=== PATIENT | female | born 2000 | race Caucasian/White ===

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

== ENCOUNTER 2023-09-17 13:05 | Outpatient (CLI) | payer OTHER, SELFPAY ==
--- NOTE | 2023-09-17 13:13 | US_ITS ---
PROCEDURE: US OB BIOPHYSICAL PROFILE CLINICAL INDICATION: LGA size is greater than dates, ANASTASIA COMPARISON: No exams were available for comparison FINDINGS: Transabdominal sonographic images of the uterus were obtained. From her established due date she is 37 weeks 0 days. The following parameters are obtained: Viable Fetus in the cephalic presentation with a posterior/fundal placenta grade 3. Average ultrasound age is 35weeks 1day Estimated weight 2,606g, 5 lb 12 oz. Cervix measures 3.28 cm. Measurements: heart Rate = 134bpm BPD = 34weeks 5days, 8 percentile HC = 35weeks 3days, 4 percentile AC = 35weeks 3days, 20 percentile FL = 34weeks 6days, 6 percentile HC/AC is 1 FL/BPD is 0.79 FL/AC is 0.22 14 percentile Amniotic fluid index: 11.88cm, MVP 4.45 cm. Qualitative AFV:2 Breathing movements: 2 Gross Body Movements: 2 Tone: 2 Biophysical profile score: 8 No obvious anomalies evident.Kidneys, stomach, bladder, four-chamber heart, three-vessel cord appear normal. IMPRESSION: 1. Viable fetus in the cephalic presentation with a posterior/fundal placenta grade 3. 2. The fluid is within normal limits with an amniotic fluid index of 11.8 cm, MVP 4.45 cm. 3. Biophysical profile is 8/8 with good breathing movement and movement seen. 4. Fetus is symmetrically 2 weeks behind on its growth and is currently 14th percentile. Dictated by: Robson Lee MD 09/17/2023 16:46 Robson Lee MD in OV 09/17/2023 16:46
== END 2023-09-17 23:59 | disposition home or self-care (01) ==
LOC: RAD 13:06
PROVIDERS: Visit Provider Obstetrics & Gynecology
DX: O36.63X0 Maternal care for excessive fetal growth, third trimester, not applicable or unspecified (principal); O28.8 Other abnormal findings on antenatal screening of mother; Z3A.37 37 weeks gestation of pregnancy
CPT/HCPCS: 76816; 76819; 86403

== ENCOUNTER 2023-09-29 16:47 | Inpatient (IN) | payer OTHER, SELFPAY ==
[2023-09-29 16:53] VITALS: BMI 32.9
[2023-09-29 17:24] LABS: Microscopic, Urine URINE MICROSCOPIC (MICROSCOPIC)
[2023-09-29 17:33] LABS: Basophils % 0.2 % (0.1-2.0); Eosinophils # 0.1 K/mm3 (0.0-0.4); Eosinophils % 1.3 % (0.1-12.0); Hemoglobin 9.6 g/dL (12.2-16.2); Lymphocytes # 2.1 K/mm3 (0.7-4.5); Lymphocytes % 23.2 % (10-50); Mean Corpuscular HGB Conc 32.1 g/dL (31.8-35.4); Mean Corpuscular Hemoglobin 22.8 pg (27.0-31.2); Mean Corpuscular Volume 70.9 fl (81-99); Mean Platelet Volume 9.1 fl (7.4-10.4); Monocytes # 0.3 K/mm3 (0.1-1.0); Monocytes % 3.7 % (1.7-9.3); Neutrophils # 6.6 K/mm3 (1.8-7.8); Neutrophils % 71.7 % (37.0-80.0); Platelet Count 304 K/mm3 (142-424); Red Blood Count 4.24 M/mm3 (4.20-5.40); Red Cell Distribution Width 19.4 % (11.5-17.5); White Blood Count 9.2 K/mm3 (4.8-10.8)
[2023-09-29 17:39] VITALS: BMI 32.9
[2023-09-29 17:39] LABS: Appearance,Urine CLEAR (Clear); Bilirubin,Urine Negative (Negative); Blood, Urine Negative (Negative); Color,Urine YELLOW (Yellow); Glucose,Urine (UA) Negative (Negative); Ketones,Urine 2+ (Negative); Leukocyte Esterase,Urine Negative (Negative); Nitrate,Urine Negative (Negative); Protein,Urine 2+ (Negative)
[2023-09-29 17:55] LABS: Barbiturates Screen,Urine Negative ng/ml (<200); Benzodiazepines Screen,Urine Negative ng/ml (<200)
[2023-09-29 17:56] LABS: Amphetamine/Metha Screen,Urine Negative ng/ml (<1000)
[2023-09-29 17:57] LABS: Cannabinoid Screen,Urine Negative ng/ml (<50); Cocaine Screen,Urine Negative ng/ml (<300)
[2023-09-29 17:58] LABS: Methadone Screen,Urine Negative ng/ml (<300); Opiate Screen,Urine Negative ng/ml (<300)
[2023-09-29 17:59] LABS: Phencyclidine Screen,Urine Negative ng/ml (<25)
[2023-09-29] MEDS: miSOPROStol 100MCG TABLET 25 MCG VG ×2 (18:15→22:31)
[2023-09-29] MEDS: LACTATED RINGERS 1000ML 1,000 ML 250 ML IV (18:25)
[2023-09-29 19:21] LABS: Bacteria,Urine Trace /lpf; RBC,Urine Occasional #/hpf (0-3)
[2023-09-29 19:47] VITALS: BP 128/79; PULSE 71; RESP 17; TEMP 36.7; O2SAT 100
[2023-09-30] MEDS: BUTORPHANOL TARTRATE 1 MG/ML VIAL IV ×2 (01:05→09:18)
[2023-09-30] MEDS: miSOPROStol 100MCG TABLET 25 MCG VG (02:42)
[2023-09-30 04:49] VITALS: BP 124/67; PULSE 69; RESP 17; TEMP 36.5; O2SAT 100
[2023-09-30] MEDS: miSOPROStol 100MCG TABLET 50 MCG PO (06:45)
--- NOTE | 2023-09-30 08:17 | P.CONPHA_ITS ---
Pharmacy Intervention Comments: MEDICATION RECONCILIATION COMPLETED ON PATIENT USING EXTERNAL FILL HISTORY FROM PHARMACY AND LIST FROM ACCOUNT INSTALLATION SPECIALIST OFFICE. -PADMA MASOND
--- NOTE | 2023-09-30 08:17 | HMH.PHAINT1 ---
Pharmacy Intervention Comments: MEDICATION RECONCILIATION COMPLETED ON PATIENT USING EXTERNAL FILL HISTORY FROM PHARMACY AND LIST FROM SENIOR GRAPHIC DESIGNER OFFICE. -PADMA MASOND
--- NOTE | 2023-09-30 08:24 | HMH.PHAINT1 ---
Pharmacy Intervention Comments: HOME MEDICATION VERIFIED VIA OUTSIDE PHARMACY
--- NOTE | 2023-09-30 08:33 | P.HP_ITS ---
History of Present Illness *Admission Date: 09/30/23 *Reason for visit:: induction *History of present illness: Fanny is a 23yo presenting to L&D at 39w0d gestation for an scheduled elective induction of labor. ABRAHAM is 10/07/2023 based on last menstrual period consistent with 8-week ultrasound. has been relatively uncomplicated. She transferred care late in the third trimester. She received her Tdap vaccine along with this . On presentation patient endorsed good movement and denies any leakage of fluid or vaginal bleeding. A+, antibody negative, rubella immune, hepatitis B negative, hepatitis C negative, RPR negative, HIV negative 1 hour GTT: 94 GBS negative Q js: Low risk male fetus: John [facility] Disclaimer: The information contained in this section may have been updated after the patient was seen, as this information can be updated by other users. Medical History No significant past medical history Surgical History Hx of tonsillectomy Family History Unknown Cancer breast & ovarian Social History (Updated 09/30/23 @ 11:46 by Scotty Blood CRNA) Smoking Status: Never smoker alcohol intake: never substance use type: denies use current occupational status: employed Travel in the last 8 weeks: None Review of Systems Review of Systems Review of systems (narrative): Review of Systems Constitutional: Denies fever, chills, and sweats Eyes: Denies vision change/ pain Respiratory: Denies cough and shortness of breath Cardiovascular: Denies chest pain and lightheadedness Gastrointestinal: Denies abdominal pain. Denies nausea, vomiting. Genitourinary: Denies dysuria and incontinence Musculoskeletal: Denies shoulder pain and back pain Neurological: Denies change in speech or headaches Meds Home Medications and Allergies Home Medications Medication Instructions Recorded Confirmed Type famotidine 10 mg tablet 10 mg PO DAILY 08/26/23 09/29/23 History ferrous sulfate 325 mg (65 mg 325 mg PO BID 08/26/23 09/29/23 History iron) tablet ondansetron 4 mg disintegrating 4 mg PO Q6HP PRN Nausea 08/26/23 09/29/23 History tablet vits no.126-ferrous fum 1 tab PO DAILY 08/26/23 09/29/23 History 28 mg iron-folic acid 800 mcg tablet (Classic ) New Prescriptions to Start Prescriptions: Allergies Allergy/AdvReac Type Severity Reaction Status Date / Time No Known Allergies Allergy Verified 09/23/23 16:30 Exam Data for Last 24 hours Vital signs and Labs for Last 24 Hours: Temp Pulse Resp BP Pulse Ox O2 Del Method 97.7 F 69 17 124/67 100 Room Air 09/30/23 04:49 09/30/23 04:49 09/30/23 04:49 09/30/23 04:49 09/30/23 04:49 09/30/23 04:49 Laboratory Results - last 24 hr 09/29/23 17:00: Urine Color Yellow, Urine Appearance Clear, Urine pH 7.0, Ur Specific [place] 1.020, Urine Protein 2+, Urine Glucose (UA) Negative, Urine Ketones 2+, Urine Blood Negative, Urine Nitrate Negative, Urine Bilirubin Negative, Urine Urobilinogen 1.0, Ur Leukocyte Esterase Negative, Urine RBC Occasional, Urine WBC 3-5, Ur Squamous Epith Cells 5-10, Urine Bacteria Trace, Urine Opiates Screen Negative, Urine Methadone Screen Negative, Ur Barbituates Screen Negative, Ur Phencyclidine Scrn Negative, Ur Amphetamines Screen Negative, U Benzodiazepines Scrn Negative, Urine Cocaine Screen Negative, U Marijuana (THC) Screen Negative 09/29/23 17:12: WBC 9.2, RBC 4.24, Hgb 9.6 L, Hct 30.0 L, MCV 70.9 L, MCH 22.8 L , MCHC 32.1, RDW 19.4 H, Plt Count 304, MPV 9.1, Neut % (Auto) 71.7, Lymph % (Auto) 23.2, [place] % (Auto) 3.7, Eos % (Auto) 1.3, Baso % (Auto) 0.2, Neut # (Auto) 6.6, Lymph # (Auto) 2.1, [place] # (Auto) 0.3, Eos # (Auto) 0.1, Baso # (Auto) 0.0, Blood Type A Positive, Antibody Screen Negative I & O for Last 24 hours: Intake & Output 09/27/23 09/28/23 09/29/23 09/30/23 23:59 23:59 23:59 23:59 Weight 180 lb Narrative: General: patient is alert oriented in no acute distress and responds appropriately to questions. HEENT: NCAT, EOMI, moist mucous membranes, neck supple with full ROM Cardiovascular: RRR +S1/S2, no murmurs or rubs Pulmonary: Clear to auscultation bilaterally, nonlabored breathing, symmetric chest rise Abdominal: Gravid abdomen appropriate for gestation. No guarding, rebound, or tenderness noted. Extremities: trace edema, no tenderness or cyanosis noted Skin: Normal turgor, intact, warm. Negative for erythema, pallor, petechia, or lesions Neurologic: Negative for sensory or motor deficit Psychiatric: Normal affect, normal thought process, good judgment and insight, no depression or anxious mood appreciated. Constitutional Constitutional: no acute distress *Routine HEENT Exam Head: Present normocephalic and atraumatic Eye: Present EOMI, PERRL and normal accommodation; Absent conjunctival icterus, scleral injection, nystagmus or exophthalmos ENT: Present mucous membranes moist *Routine Neck Exam Neck: Present supple; Absent lymphadenopathy *Routine Respiratory Exam Respiratory: Present CTA bilaterally, normal respiratory effort, able to speak in complete sentences and symmetric chest movement; Absent accessory muscle use, decreased breath sounds, rales, respiratory distress, wheezes, distant breath sounds or diminished air movement *Routine Cardiovascular Exam Cardiovascular: Present RRR, Normal S1 and Normal S2; Absent murmur or gallop *Routine Abdominal Exam Abdominal: Present soft and normoactive bowel sounds; Absent tenderness, distended, rebound or guarding *Routine Rectal Exam Rectal:: deferred *Routine Genitalia Exam Genitalia:: normal female *Routine Extremities Exam Extremities: Absent cyanosis, clubbing or edema *Routine Skin Exam Skin: Present warm; Absent rash *Routine Neurological Exam Neurological: Present alert and oriented X3 Assessment and Plan *Assessment and plan (1) Anemia affecting first : Status: Acute Category: Medical Code(s): O99.019 - Anemia complicating , unspecified trimester (2) Elective induction of labor planned: Status: Acute Category: Medical (3) : Status: Acute Category: Medical Code(s): Z34.90 - Encounter for supervision of normal , unspecified, unspecified trimester Plan #39 weeks #Induction of labor -Admit to labor and delivery for planned elective induction of labor -Initiate induction with 25mcg of vaginal cytotec [id number] per protocol. At 5 AM this morning the patient had made no cervical change, was comfortable and not feeling contractions at that time, and decision was made to proceed with a dose of 50 mcg of p.o. Cytotec for her next dose for cervical ripening -External FHR and TOCO monitor -Exam on admission: /-3 -GBS negative/ Blood type: A+ #Anemia -Hemoglobin: 9.6 -Microcytic anemia with an MCV of 70. Likely iron deficiency anemia and chronic -Plt: 304 -Plan for epidural -Anticipate vaginal delivery of Male infant: John
[2023-09-30] MEDS: DEXTROSE 5%-LACTATED RINGERS 1,000 ML 125 ML IV ×2 (09:16→17:24)
[2023-09-30] MEDS: LACTATED RINGERS 1000ML 1,000 ML 500 ML IV ×2 (10:50→15:47)
--- NOTE | 2023-09-30 11:45 | P.PNANES_ITS ---
[facility] Disclaimer: The information contained in this section may have been updated after the patient was seen, as this information can be updated by other users. Medical History No significant past medical history Surgical History Hx of tonsillectomy Family History Unknown Cancer breast & ovarian Social History (Updated 09/29/23 @ 18:32 by Laurel Mckeon RN) Smoking Status: Never smoker alcohol intake: never substance use type: denies use current occupational status: employed Travel in the last 8 weeks: None [facility] Anesthesia Checklist Patient Identification Patient Identification: Arm Band Structural Data Admitted From: Inpatient Planned Operative Procedure/s: Labor Epidural Consent for Planned Operative Procedure(s) Verified: Yes Verified Documents: History and Physical Additional verifications Anesthesia Reactions: No Airway Assessment Dentition: Good Dentition Neurological Assessment Level of Consciousness: Awake and Alert Anesthesia Plan Anesthesia Risk discussed: Yes Anesthesia Plan: Verified ASA Class: II Anesthesia Type: Epidural
[2023-09-30] MEDS: OXYTOCIN/RINGERS LACTATE 30 UNITS/500 ML BAG IV (11:58)
[2023-09-30] MEDS: ONDANSETRON 4MG/2ML VIAL 4 MG IV (15:34)
[2023-09-30] MEDS: OXYTOCIN/RINGERS LACTATE 30 UNITS/500 ML BAG 40 UNITS IV ×2 (21:29→23:44)
[2023-09-30] MEDS: ACETAMINOPHEN 500MG TAB 1000 MG PO (22:40)
--- NOTE | 2023-09-30 23:38 | EXP.DN ---
Delivery Note Delivery Date:: 09/30/23 Delivery Time:: 21:24 Anesthesia Type: Epidural Was labor medically induced?: Yes Induction method: per misoprostol protocol Gestational age (weeks): 39 Infant delivered prior to 39 weeks?: No Gender: Male at 1 minute: 8 at 5 minutes: 9 LAC or MLE?: LAC Delivery Procedure:: Preoperative diagnosis: 1. at 39 completed this weeks gestation, vertex 2. Rh positive 3. GBS negative 4. Elective induction of labor Postoperative diagnosis: 1. at 39 completed this weeks gestation, vertex 2. Rh positive 3. GBS negative 4. Elective induction of labor EBL: 200mL Specimen: 1. Cord blood Findings: 1. Liveborn viable male : John. Apgars 8/9 at 1 and 5 minutes respectively. Weight: 6 pounds 5 ounces 2. Periurethral/periclitoral laceration Complications: None Procedure: Normal spontaneous vaginal delivery Fanny Kendall is a very pleasant 23-year-old G1, P0 who presented to labor and delivery for a scheduled elective induction of labor. She was a third trimester transfer of care. Her was uncomplicated. Induction was initiated with Cytotec for cervical ripening. She received 4 doses of Cytotec and tolerated that well. She had spontaneous rupture of membranes this morning revealing clear fluid. Pitocin was started, per protocol to augment her labor. She progressed to complete and with effective maternal pushing there was a nonoperative spontaneous vaginal delivery at 2123. There was a nuchal cord x1 that was reduced without difficulty. The anterior shoulder delivered, followed by the posterior shoulder without dystocia. The body and lower extremities delivered without difficulty. The infant was bulb suctioned and was crying immediately following delivery. The infant was placed on the maternal abdomen and greater than one minute was appreciated for delayed cord clamping. The umbilical cord was doubly clamped and cut. Cord blood was collected and sent for routine testing. The placenta delivered with cord traction and suprapubic contertraction. Pitocin was started and the placenta and cord were inspected. The placenta was noted to be intact, with a 3 vessel cord. The uterus was firm and bleeding was minimal. The perineum, vaginal moore, cervix, and paraurethral area were inspected thoroughly. There is a small periclitoral laceration that was reapproximated with 3 single interrupted 3-0 Vicryl stitches. The laceration was hemostatic. This concluded the delivery. The patient was counseled regarding the events of the delivery and repair. The patient tolerated the delivery well. All counts were correct by nursing. Mother and infant were doing and bonding well upon my leaving the delivery room. Placental Delivery Description: Expressed
[2023-10-01] MEDS: IBUPROFEN 400 MG TABLET 800 MG PO ×3 (04:18→16:24)
[2023-10-01 07:01] LABS: Basophils % 0.1 % (0.1-2.0); Eosinophils % 0.2 % (0.1-12.0); Hematocrit 25.5 % (37.0-47.0); Hemoglobin 8.1 g/dL (12.2-16.2); Lymphocytes # 2.4 K/mm3 (0.7-4.5); Lymphocytes % 16.9 % (10-50); Mean Corpuscular HGB Conc 31.8 g/dL (31.8-35.4); Mean Corpuscular Hemoglobin 22.8 pg (27.0-31.2); Mean Corpuscular Volume 71.6 fl (81-99); Mean Platelet Volume 9.7 fl (7.4-10.4); Monocytes # 0.9 K/mm3 (0.1-1.0); Monocytes % 6.2 % (1.7-9.3); Neutrophils # 10.7 K/mm3 (1.8-7.8); Neutrophils % 76.6 % (37.0-80.0); Platelet Count 246 K/mm3 (142-424); Red Blood Count 3.57 M/mm3 (4.20-5.40)
[2023-10-01 09:00] VITALS: BP 122/77; PULSE 72; RESP 18; TEMP 36.9; O2SAT 99
[2023-10-01] MEDS: FAMOTIDINE 20MG TABLET 10 MG PO (09:03)
[2023-10-01] MEDS: LANOLIN CREAM 40GM TP (09:03)
[2023-10-01] MEDS: ACETAMINOPHEN 500MG TAB 1000 MG PO ×2 (09:03→17:39)
[2023-10-01] MEDS: FERROUS SULFATE 325MG TABLET 325 MG PO ×2 (09:03→20:18)
--- NOTE | 2023-10-01 09:28 | EXP.PN ---
Subjective *Date: 10/01/23 *Time: 09:28 Interval history: Fanny Hardy is a 23-year-old G1, P1 day #1 following a normal spontaneous vaginal delivery at 39 weeks and 0 days gestation. was uncomplicated. Routine delivery and course thus far. -Reports pain is well-controlled -Breast-feeding her male infant. Desires circumcision -Reports she is tolerating p.o. without nausea or vomiting. -Reports her lochia is scant. -Denies any perineal pain -Ambulating, voiding difficulty or dysuria. Denies chest pain shortness of breath or pain in her legs. No further complaints at this time. Exam Data for Last 24 hours Vital signs and Labs for Last 24 Hours: Temp Pulse Resp BP Pulse Ox O2 Del Method 97.7 F 69 17 124/67 100 Room Air 09/30/23 04:49 09/30/23 04:49 09/30/23 04:49 09/30/23 04:49 09/30/23 04:49 09/30/23 04:49 Laboratory Results - last 24 hr 10/01/23 06:29: WBC 14.0 H D, RBC 3.57 L, Hgb 8.1 L, Hct 25.5 L, MCV 71.6 L, MCH 22.8 L, MCHC 31.8, RDW 20.0 H, Plt Count 246, MPV 9.7, Neut % (Auto) 76.6, Lymph % (Auto) 16.9, [place] % (Auto) 6.2, Eos % (Auto) 0.2, Baso % (Auto) 0.1, Neut # (Auto) 10.7 H, Lymph # (Auto) 2.4, [place] # (Auto) 0.9, Eos # (Auto) 0.0, Baso # (Auto) 0.0 I & O for Last 24 hours: Intake & Output 09/28/23 09/29/23 09/30/23 10/01/23 23:59 23:59 23:59 23:59 Weight 180 lb Narrative: General: patient is alert oriented in no acute distress and responds appropriately to questions. Appears to be in minimal pain. Sitting up in the bed and doing well HEENT: NCAT, EOMI, moist mucous membranes, neck supple with full ROM Cardiovascular: RRR +S1/S2, no murmurs or rubs Pulmonary: Clear to auscultation bilaterally, nonlabored breathing, symmetric chest rise Abdominal: Fundus below the umbilicus, firm, and tenderness appropriate for the period. Extremities: trace edema, no tenderness or cyanosis noted Skin: Normal turgor, intact, warm. Negative for erythema, pallor, petechia, or lesions Neurologic: Negative for sensory or motor deficit Psychiatric: Normal affect, normal thought process, good judgment and insight, no depression or anxious mood appreciated. Assessment and Plan *Assessment and plan (1) Anemia affecting first : Status: Acute Category: Medical Code(s): O99.019 - Anemia complicating , unspecified trimester (2) (normal spontaneous vaginal delivery): Status: Acute Category: Medical Code(s): O80 - Encounter for full-term uncomplicated delivery Plan Stable. PPD#1 s/p . -Doing well. VSS. Serial lochia and fundal checks. -Continue with perineal ice packs for discomfort -, male -Desires circumcision, consents signed and risks reviewed this morning. I will complete in the AM -Contraception: undecided -Follow-up 2 weeks for routine visit -Dispo: home in 1-3 days pending mother/infant status #Anemia -Microcytic anemia likely chronic iron deficiency anemia complicated by physiologic anemia of and blood loss at delivery -Hemoglobin: 9.6--> 8.1 - asymptomatic anemia noted. Vitals stable. -IV iron ordered to be given this morning -DC with p.o. iron -A+/antibody negative
[2023-10-01] MEDS: IRON SUCROSE COMPLEX 200 MG in 0.9 % SODIUM CHLORIDE 100 ML 220 MG IV (10:29)
[2023-10-01 12:14] VITALS: BP 123/80; PULSE 65; RESP 18; TEMP 36.7; O2SAT 98
[2023-10-01 16:10] VITALS: BP 131/80; PULSE 68; RESP 18; TEMP 36.9; O2SAT 98
[2023-10-01] MEDS: PRENATAL MULTIVITAMIN W/IRON 1 EACH PO (16:24)
[2023-10-01 20:17] VITALS: BP 132/87; PULSE 67; RESP 17; TEMP 36.5; O2SAT 99
[2023-10-02 07:45] VITALS: BP 148/85; PULSE 82; RESP 18; TEMP 36.8; O2SAT 98
[2023-10-02] MEDS: IBUPROFEN 400 MG TABLET 800 MG PO (07:59)
[2023-10-02] MEDS: FERROUS SULFATE 325MG TABLET 325 MG PO (07:59)
[2023-10-02] MEDS: FAMOTIDINE 20MG TABLET 10 MG PO (08:00)
--- NOTE | 2023-10-02 09:14 | EXP.DC.SUM ---
General Admission date:: 09/29/23 Discharge date: 10/02/23 HPI HPI HPI: Fanny is a 23yo presenting to L&D at 39w0d gestation for an scheduled elective induction of labor. ABRAHAM is 10/07/2023 based on last menstrual period consistent with 8-week ultrasound. has been relatively uncomplicated. She transferred care late in the third trimester. She received her Tdap vaccine along with this . On presentation patient endorsed good movement and denies any leakage of fluid or vaginal bleeding. A+, antibody negative, rubella immune, hepatitis B negative, hepatitis C negative, RPR negative, HIV negative 1 hour GTT: 94 GBS negative Q : Low risk male fetus: [facility] Course Hospital Course Hospital Course: Fanny Hardy is a 23-year-old G1, P1 day #2 following a normal spontaneous vaginal delivery at 39 weeks and 0 days gestation. was uncomplicated. Routine delivery and course. -Reports pain is well-controlled -Breast-feeding her male . Circumcision completed this morning without problems -Reports she is tolerating p.o. without nausea or vomiting. -Reports her lochia is scant. -Denies any perineal pain -Ambulating, voiding difficulty or dysuria. Denies chest pain shortness of breath or pain in her legs. No further complaints at this time. Patient and partner are ready for discharge. Routine discharge instructions were reviewed with both of them in detail and they voiced understanding. All questions and concerns were addressed to their satisfaction Exam Data for Last 24 hours Vital signs and Labs for Last 24 Hours: Temp Pulse Resp BP Pulse Ox O2 Del Method 97.7 F 67 17 132/87 99 Room Air 10/01/23 20:17 10/01/23 20:17 10/01/23 20:17 10/01/23 20:17 10/01/23 20:17 10/01/23 20:17 I & O for Last 24 hours: Intake & Output 09/29/23 09/30/23 10/01/23 10/02/23 23:59 23:59 23:59 23:59 Weight 180 lb Narrative: General: patient is alert oriented in no acute distress and responds appropriately to questions. Appears to be in minimal pain. Sitting up in the bed and doing well HEENT: NCAT, EOMI, moist mucous membranes, neck supple with full ROM Cardiovascular: RRR +S1/S2, no murmurs or rubs Pulmonary: Clear to auscultation bilaterally, nonlabored breathing, symmetric chest rise Abdominal: Fundus below the umbilicus, firm, and tenderness appropriate for the period. Extremities: trace edema, no tenderness or cyanosis noted Skin: Normal turgor, intact, warm. Negative for erythema, pallor, petechia, or lesions Neurologic: Negative for sensory or motor deficit Psychiatric: Normal affect, normal thought process, good judgment and insight, no depression or anxious mood appreciated. DS: Diagnosis Discharge Diagnosis (1) Anemia affecting first : Status: Acute Code(s): O99.019 - Anemia complicating , unspecified trimester (2) (normal spontaneous vaginal delivery): Status: Acute Code(s): O80 - Encounter for full-term uncomplicated delivery Problem details: Stable. PPD#2 s/p . -Doing well. VSS. Serial lochia and fundal checks. -Continue with perineal ice packs for discomfort -, male -Desires circumcision, completed this morning without complications -Contraception: undecided -Follow-up 2 weeks for routine visit -Dispo: home in 1-3 days pending mother/infant status #Anemia -Microcytic anemia likely chronic iron deficiency anemia complicated by physiologic anemia of and blood loss at delivery -Hemoglobin: 9.6--> 8.1 - asymptomatic anemia noted. Vitals stable. -IV iron received on day #1 -DC with p.o. iron -A+/antibody negative Meds Home Medications and Allergies Home Medications Medication Instructions Recorded Confirmed Type famotidine 10 mg tablet 10 mg PO DAILY 08/26/23 09/29/23 History ondansetron 4 mg disintegrating 4 mg PO Q6HP PRN Nausea 08/26/23 09/29/23 History tablet vits no.126-ferrous fum 1 tab PO DAILY 08/26/23 09/29/23 History 28 mg iron-folic acid 800 mcg tablet (Classic ) acetaminophen 500 mg tablet 500 mg PO Q6H PRN fever #30 tabs 10/02/23 Rx ferrous sulfate 325 mg (65 mg 325 mg PO DAILY #30 tabs 10/02/23 Rx iron) tablet ibuprofen 800 mg tablet 800 mg PO Q8H PRN pain #60 tabs 10/02/23 Rx sennosides 8.6 mg tablet (Senna 8.6 mg PO BIDP PRN Constipation 10/02/23 Rx Lax) #60 tabs New Prescriptions to Start Prescriptions: acetaminophen Nydia Kimble ferrous sulfate Nydia Kimble ibuprofen Nydia Kimble sennosides [Senna Lax] Nydia Kimble Allergies Allergy/AdvReac Type Severity Reaction Status Date / Time No Known Allergies Allergy Verified 09/23/23 16:30 Discharge Plan Disposition Patient Disposition: Home, Self-Care Discharge Order Discharge Orders: Discharge Order (Routine); Ordered 10/02/23 Ordered By: Nydia Kimble Follow up Plan Follow up with: Nydia Kimble DO [Staff Physician] - 10/14/23 9:45 am Prescriptions/Medication Reconciliation: New sennosides [Senna Lax] 8.6 mg Tablet 8.6 mg PO BIDP PRN (Reason: Constipation) Qty: 60 2RF ibuprofen 800 mg tablet 800 mg PO Q8H PRN (Reason: pain) Qty: 60 2RF acetaminophen 500 mg tablet 500 mg PO Q6H PRN (Reason: fever) Qty: 30 3RF Continued ondansetron 4 mg tablet,disintegrating 4 mg PO Q6HP PRN (Reason: Nausea) Patient Comments: DISSOLVE 1 TABLET IN MOUTH TWICE DAILY NEEDED Classic 28 mg iron- 800 mcg tablet 1 tab PO DAILY famotidine 10 mg tablet 10 mg PO DAILY Changed ferrous sulfate 325 mg (65 mg iron) tablet 325 mg PO DAILY Qty: 30 2RF Patient Comments: TAKE 1 TABLET BY MOUTH TWICE DAILY Problem Reconciliation Problems Reviewed?: Yes Patient Discharge Instructions ACTIVITY: Continue current activity DIET: regular diet Additional Instructions: Congratulations on the delivery of your sweet baby boy. It is my privilege to be your doctor and I am so thankful I could be a part of your special day. Discharge: -Take 800 mg Ibuprofen every 8 hours as needed for pain. You can also take 500-1000 mg of Tylenol in between doses, every 6-8 hours. -Colace can be taken 1-2 times per day as you need to soften your stool. Make sure to drink at least 8 cups of water per day. -Iron supplements can make you constipated. You can take iron tablets every other day if constipation is too bad. -Nothing in the vagina for 6 weeks - no sex, douching, tampons. No tub baths -Do not lift greater than 15 pounds for 6 weeks, this is the equivalent of 2 gallons of milk. -Reasons to return to L&D or call On-Call doctor - fever (greater than 100.4) - heavy vaginal bleeding (soaking through 1 pad in less than 2 hours or passing clots that are egg sized) - vaginal discharge (malodorous and/or purulent) - severe headaches, leg tenderness/edema, or any other symptoms that warrant immediate medical attention. depression/blues - Normal to feel anxious/overwhelmed for first 2 weeks - Talk to your doctor if: anxiety lasts over 2 weeks, trouble bonding with baby, withdrawing from other family members, thoughts of harming yourself or others Nydia Kimble DO [facility] [phone] *Nothing in the Vagina for 6 weeks* *No strenuous activity* *No heavy lifting* *No tub baths until okay's by MD* Patient Instructions: Depression, Hemorrhage, DI for Labor and Delivery, Vaginal , DI for Pre-eclampsia, [facility] Post Discharge Instructions Providers Primary Care Provider: Juan Sethi Admit Provider: Nydia Kimble Attending Provider: Nydia Kimble
== END 2023-10-02 12:40 | disposition home or self-care (01) | DRG 807 ==
PROVIDERS: Admitting Provider Obstetrics & Gynecology; PCP Internal Medicine Addiction Medicine; Visit Provider Obstetrics & Gynecology
DX: O99.02 Anemia complicating childbirth (principal); Z37.0 Single live birth; Z3A.39 39 weeks gestation of pregnancy; O70.0 First degree perineal laceration during delivery; D50.0 Iron deficiency anemia secondary to blood loss (chronic)
CPT/HCPCS: 59409; 36415; 59025; 80307; 81001; 85025; 86850; 94761; G0283; J0595; J1756; J2405

== ENCOUNTER 2024-04-14 11:12 | Outpatient (CLI) | payer OTHER, SELFPAY ==
[2024-04-14 13:02] LABS: HCG,Quantitative 66004 mIU/ml (0-5.42)
== END 2024-04-14 23:59 | disposition home or self-care (01) ==
LOC: LAB 11:12
PROVIDERS: PCP Internal Medicine Addiction Medicine; Visit Provider Obstetrics & Gynecology
DX: Z34.90 Encounter for supervision of normal pregnancy, unspecified, unspecified trimester (principal)
CPT/HCPCS: 36415; 84144; 84702

== ENCOUNTER 2024-04-28 14:56 | Outpatient (CLI) | payer OTHER, SELFPAY ==
[2024-04-28 15:58] LABS: Basophils % 0.5 % (0.1-2.0); Eosinophils % 0.1 % (0.1-12.0); Hematocrit 39.8 % (37.0-47.0); Hemoglobin 13.7 g/dL (12.2-16.2); Lymphocytes # 1.8 K/mm3 (0.7-4.5); Lymphocytes % 24.9 % (10-50); Mean Corpuscular HGB Conc 34.4 g/dL (31.8-35.4); Mean Corpuscular Hemoglobin 28.3 pg (27.0-31.2); Mean Corpuscular Volume 82.4 fl (81-99); Mean Platelet Volume 8.2 fl (7.4-10.4); Monocytes # 0.4 K/mm3 (0.1-1.0); Monocytes % 5.6 % (1.7-9.3); Neutrophils % 68.9 % (37.0-80.0); Platelet Count 275 K/mm3 (142-424); Red Blood Count 4.83 M/mm3 (4.20-5.40); White Blood Count 7.3 K/mm3 (4.8-10.8)
[2024-04-28 22:46] LABS: HIV (1&2) Antibody Rapid NONREACTIVE (NONREACTIVE)
[2024-04-29 06:26] LABS: HCV Ab Non Reactive (Non Reactive); Hepatitis B Surface Antigen Negative (Negative); Rubella Antibodies, IgG 1.99 index (Immune >0.99)
[2024-04-29 12:29] LABS: Rapid Plasma Reagin Ab Titer Non Reactive titer (NonRea<1:1)
[2024-04-30 07:14] LABS: Neisseria gonorrhoeae, NAA Negative (Negative)
== END 2024-04-28 23:59 | disposition home or self-care (01) ==
LOC: LAB 14:58
PROVIDERS: PCP Internal Medicine Addiction Medicine; Visit Provider Obstetrics & Gynecology
DX: Z34.90 Encounter for supervision of normal pregnancy, unspecified, unspecified trimester (principal)
CPT/HCPCS: 36415; 85025; 86593; 86762; 86803; 86850; 87086; 87340; 87389; 87491; 87591

== ENCOUNTER 2024-07-22 13:08 | Outpatient (CLI) | payer OTHER, SELFPAY ==
--- NOTE | 2024-07-22 13:08 | US_ITS ---
PROCEDURE: US OB /MATERNAL DETAIL CLINICAL INDICATION: 20 wk+ anatomy scan COMPARISON: No exams were available for comparison FINDINGS: Transabdominal sonographic images of the pelvis were obtained. From her established due date she is 21 weeks 0 days. Single viable intrauterine gestation. Cephalic position. Placenta: Anteriorplacenta grade 1. There is an average amount of fluid. The cervix appears satisfactory. Closed and measuring 4.78 in length. Complete survey performed and was unremarkable on the submitted images as in PACS. No discrete anomalies identified on survey imaging by technologist. Active fetus. Three-vessel cord with satisfactory umbilical cord insertion. 4- chamber heart noted. Situs, aortic arch, LVOT, RVOT, three-vessel view appear normal. There is a small intracardiac echogenic foci in the right ventricle. Survey of brain & ventricles Unremarkable. Cerebellum, thalamus, choroid plexus, cisterna magna appear normal. Face and neck survey unremarkable. Profile, nasion, lips and nose appeared normal. Diaphragm and chest views unremarkable. Abdomen: Both kidneys noted and unremarkable. Stomach and bladder noted and satisfactory. Spine: Survey of the spine satisfactory with no anomalies identified nor imaged. Cervical, thoracic, lower spine appear normal. Both arms and legs noted. Amniotic Fluid: Adequate. MVP 2.70 cm Measurements: Average ultrasound age 21weeks 0 days. Estimated due date by ultrasound age 0612/02/2024. Estimated weight 412g BPD = 20weeks 3days HC = 20weeks 4days AC = 21weeks 3days FL = 21weeks 4days Growth Percentile= 60 Heart Rate = 150bpm Cerebellum = 20weeks 0 days Humerus = 21weeks 1day HC/AC is 1.12 FL/BPD is 0.77 FL/AC is 0.22 IMPRESSION: 1. Viable fetus in the cephalic presentation with an anterior placenta grade 1. 2. The fluid is within normal limits with an MVP 2.70 cm. 3. Anatomical scan appears normal. 4. There is a small intracardiac echogenic foci in the right ventricle and would suggest follow-up at 28 weeks. 5. biometry is consistent with the dates. Dictated by: Robson Lee MD 07/22/2024 16:10 Robson Lee MD in OV 07/22/2024 16:10
== END 2024-07-22 23:59 | disposition home or self-care (01) ==
PROVIDERS: PCP Internal Medicine Addiction Medicine; Visit Provider Obstetrics & Gynecology
DX: Z36.3 Encounter for antenatal screening for malformations (principal); O09.892 Supervision of other high risk pregnancies, second trimester; O16.2 Unspecified maternal hypertension, second trimester; Z3A.21 21 weeks gestation of pregnancy; O99.019 Anemia complicating pregnancy, unspecified trimester
CPT/HCPCS: 76811

== ENCOUNTER 2024-10-15 10:45 | Outpatient (CLI) | payer BC, OTHER, SELFPAY ==
[2024-10-15 12:26] LABS: Basophils % 0.2 % (0.1-2.0); Eosinophils # 0.2 Kmm3 (0.0-0.4); Eosinophils % 1.7 % (0.1-12.0); Hematocrit 30.6 % (37.0-47.0); Hemoglobin 9.2 g/dL (12.2-16.2); Immature Granulocytes # 0.09 10^3uL; Lymphocytes # 1.8 K/mm3 (0.7-4.5); Lymphocytes % 20.2 % (10-50); Mean Corpuscular HGB Conc 30.1 g/dL (31.8-35.4); Mean Corpuscular Hemoglobin 23.1 pg (27.0-31.2); Mean Corpuscular Volume 76.9 fl (81-99); Mean Platelet Volume 10.4 fl (7.4-10.4); Monocytes # 0.5 K/mm3 (0.1-1.0); Monocytes % 5.7 % (1.7-9.3); Neutrophils # 6.4 K/mm3 (1.8-7.8); Neutrophils % 71.2 % (37.0-80.0); Nucleated Red Blood Cells # 0 10^3/uL; Nucleated Red Blood Cells % 0 %; Platelet Count 222 K/mm3 (142-424); Red Blood Count 3.98 M/mm3 (4.20-5.40); Red Cell Distribution Width 15.7 % (11.5-17.5); Red Cell Distribution Width-SD 43.5 fL
[2024-10-15 12:38] LABS: Glucose 1 Hour 110 mg/dL (74-100)
--- NOTE | 2024-10-15 14:15 | US_ITS ---
PROCEDURE: US OB FOLLOW UP CLINICAL INDICATION: sm intracardiac-echogenic foci in the RT ventricle COMPARISON: US US OB /MATERNAL DETAIL from 07/22/2024 FINDINGS: Transabdominal sonographic images of the pelvis were obtained. The following parameters are obtained: From her established due date she is 33weeks 1day Viable fetus in the cephalic presentation with an anterior placenta grade 1. The cervix measures 3.7 cm heart rate: 156bpm bpm. Average ultrasound age 33 weeks 1 day Estimated weight 2084 grams, 4 lb 10 oz BPD: 33weeks 0 days, 38 percentile HC: 33weeks 2days, 17 percentile AC: 33weeks 2days, 52 percentile FL: 32weeks 4days, 21 percentile HC/AC: 1.03 FL/BPD: 0.76 FL/AC: 0.22 Growth percentile: 35 Amniotic fluid: MVP 4.72 cm No obvious anomalies evident. profile seen, stomach, bladder, kidneys, three-vessel cord, four chamber heart, three-vessel view, RVOT, LVOT appear normal. IMPRESSION: 1. Viable fetus in the cephalic presentation with an anterior placenta grade 1. 2. The fluid is within normal limits with an MVP 4.72 cm. 3. There has been good interval growth with the fetus currently 35th percentile. 4. Limited anatomical scan appears normal. 5. The previously described intracardiac echogenic foci is no longer apparent today. Dictated by: Robson Lee MD 10/16/2024 07:42 Robson Lee MD in OV 10/16/2024 07:42
[2024-10-15 15:14] LABS: RPR W/RFX Titers Nonreactive (Nonreactive)
[2024-10-15 15:44] LABS: Ferritin 3.67 ng/ml (6.24-137)
== END 2024-10-15 23:59 | disposition home or self-care (01) ==
LOC: RAD 10:45
PROVIDERS: Visit Provider Obstetrics & Gynecology
DX: Z36.2 Encounter for other antenatal screening follow-up (principal); O28.3 Abnormal ultrasonic finding on antenatal screening of mother; Z3A.32 32 weeks gestation of pregnancy
CPT/HCPCS: 36415; 76816; 82728; 82947; 85025; 86592

== ENCOUNTER 2024-10-29 11:30 | Outpatient (CLI) | payer BC, OTHER, SELFPAY | END 2024-10-29 23:59 | disposition home or self-care (01) | LOC: LAB.DROPOF 11-02 13:54 | PROVIDERS: PCP Obstetrics & Gynecology; Visit Provider Obstetrics & Gynecology | DX: O99.013 Anemia complicating pregnancy, third trimester (principal); D50.9 Iron deficiency anemia, unspecified; O09.893 Supervision of other high risk pregnancies, third trimester; Z3A.35 35 weeks gestation of pregnancy | CPT/HCPCS: 86403 ==

== ENCOUNTER 2024-10-29 12:06 | Emergency (ER) | payer BC, OTHER, SELFPAY ==
[2024-10-29 12:30] VITALS: BP 133/80; PULSE 99; RESP 18; TEMP 36.6; O2SAT 100; BMI 33.8
--- NOTE | 2024-10-29 12:33 | [facility].EDGENADL ---
Discharge Plan Disposition Patient Disposition: Home, Self-Care Condition: Good Prescriptions Prescriptions: No Action Classic 28 mg iron- 800 mcg tablet 1 tab PO DAILY Qty: 30 3RF promethazine 12.5 mg tablet 12.5 mg PO Q6H PRN (Reason: nausea and vomiting) Qty: 30 2RF ferrous sulfate 325 mg (65 mg iron) tablet 325 mg PO DAILY Qty: 30 11RF Referrals Follow up/Referrals: Juan Sethi MD [Primary Care Provider] - See instructions Activity Restrictions/Add. Instructions Additional Instructions/Restrictions: I recommend wearing compression stockings to keep the fluid out of your lower extremity. I recommend not sitting for a long periods of time. Please follow-up with your PCP if you have persistent new or worsening signs or symptoms or return to the ER as needed. Clinical Impressions Clinical Impression: Lymphedema of left leg Print Language Print Language: Belarusian Discharge ED Provider: Francisco Watkins [facility] Adult HPI <OSCAR Wallace - Last Filed: 10/29/24 21:26> General Chief complaint: Extremity Problem,Nontraumatic Stated complaint: Sent by OB Leg swollen Time Seen by Provider: 10/29/24 12:33 Mode of Arrival: Ambulatory Source of Information: Patient Description of Symptoms (Recalled from ER Triage Doc. by RN): Pt was advised by her OB to come and be evaluated for left foot/leg swelling and redness that started 3 days ago [place] the beach History of Present Illness HPI narrative: Patient presents for evaluation of left lower extremity pain and swelling. Patient is 35 weeks . Patient recently took a vacation to [place] in which she traveled by car. Patient noticed while on vacation that her left lower extremity was red and swollen. She presented to her [facility] today for evaluation and was sent to the emergency department for further evaluation. Patient states that she has no chest pain shortness of breath fever chills hemoptysis hematochezia melena nausea vomiting diarrhea. The leg was more swollen and red while she was in [place] than since her return. Related Data Previous Rx's ?Medication ?Instructions ?Recorded vits no.126-ferrous fum 1 tab PO DAILY #30 tabs 04/28/24 28 mg iron-folic acid 800 mcg tablet (Classic ) promethazine 12.5 mg tablet 12.5 mg PO Q6H PRN nausea and 04/28/24 vomiting #30 tabs ferrous sulfate 325 mg (65 mg 325 mg PO DAILY #30 tabs 10/15/24 iron) tablet Allergies Allergy/AdvReac Type Severity Reaction Status Date / Time No Known Allergies Allergy Verified 10/29/24 11:32 PFSH <OSCAR Wallace - Last Filed: 10/29/24 21:26> PFS Disclaimer: The information contained in this section may have been updated after the patient was seen, as this information can be updated by other users. Medical History (Updated 10/29/24 @ 13:41 by OSCAR Wallace) Iron deficiency anemia during , antepartum Elevated blood pressure affecting in first trimester, antepartum Short interval between pregnancies affecting , antepartum Surgical History Hx of tonsillectomy Family History Unknown Cancer breast & ovarian Social History Smoking Status: Never smoker alcohol intake: never substance use type: denies use current occupational status: employed Travel in the last 8 weeks?: None Have you lived/traveled outside US in past 30 days?: No Contact w/someone who lives/traveled outside US past 30 days?: No Exposure to someone with infectious disease in past 14 days?: No Do you have a fever (greater than 100.4 F or 38 C)?: No Have you tested positive for COVID-19?: No Exposed to someone with COVID-19 in past 14 days?: No Do you have a sore throat?: No Do you have a cough?: No Do you have any weakness?: No Do you have any diarrhea?: No Are you experiencing any unusual bleeding?: No Do you have any muscle aches/pain?: No Do you have any abdominal pain?: No Are you experiencing loss of taste or smell?: No Other Medical History Have you received the Flu Vaccine for this season: No Have you received the Pneumonia Vaccine: No <OSCAR Wallace - Last Filed: 10/29/24 21:26> ROS Obtained: Yes Systems reviewed as appropriate & no additional complaints except as documented Physical Exam <OSCAR Wallace - Last Filed: 10/29/24 21:26> General General appearance: alert and in no apparent distress Respiratory Respiratory exam: Present normal lung sounds bilaterally Cardiovascular Cardiovascular exam: Present regular rate Neurological Exam Neurological exam: Present alert and oriented X3 Medical Decision Making <OSCAR Wallace - Last Filed: 10/29/24 21:26> Medical Records Medical records reviewed: Yes I reviewed the patient's medical records. Screening: Per USPSTF and CDC recommendations, given the prevalence of disease in our region, it is our hospital?s policy to screen for HIV and viral Hepatitis for all patients aged 18 and over and those with ongoing risk factors. Elliot Inquiry Pt receiving controlled substance: No Vital Signs: 10/29/24 12:30 10/29/24 13:49 Temperature 97.8 F 98 F Temperature Source Oral Pulse Rate 89 Pulse Rate [Right] 99 H Respiratory Rate 18 14 Blood Pressure 114/71 Blood Pressure [Right Arm] 133/80 Blood Pressure Mean [Right Arm] 97 Blood Pressure Source [Right Arm] Automatic Cuff Blood Pressure Position [Right Arm] Sitting 02 Sat by Pulse Oximetry 100 Lab Data Lab results reviewed: Yes I reviewed the patient's lab results. Orders (Tests/Meds): ORDERS Category Date Time Status CA venous doppler LE LT Stat Y 10/29/24 13:02 Completed Medical Decision Narrative: In summary patient is a 24-year-old female who presents to the emergency department for evaluation of left lower extremity pain and swelling. Patient is hemodynamically stable upon arrival, afebrile. Physical exam is remarkable for bilateral lower extremity pitting edema +2 however left is greater than right. There is no induration there is no erythema. Patient has no posterior calf tenderness. Patient has no pain with Homans maneuver.. Differential diagnosis includes lymphedema versus DVT. Initial workup will be conducted with venous duplex of the left lower extremity. Initial interventions were considered however patient is minimally symptomatic and hemodynamically stable thus deferred for now. Initial workup reviewed by me and her ultrasound DVT did not show any evidence of thrombus or cellulitis. Given this patient is appropriate for discharge with recommendations to wear compression stockings avoid prolonged sitting and close follow-up with her PCP for any persistent new or worsening signs or symptoms or return to the ER as needed. <Francisco Watkins MD - Last Filed: 10/29/24 23:35> Vital Signs: 10/29/24 12:30 10/29/24 13:49 Temperature 97.8 F 98 F Temperature Source Oral Pulse Rate 89 Pulse Rate [Right] 99 H Respiratory Rate 18 14 Blood Pressure 114/71 Blood Pressure [Right Arm] 133/80 Blood Pressure Mean [Right Arm] 97 Blood Pressure Source [Right Arm] Automatic Cuff Blood Pressure Position [Right Arm] Sitting 02 Sat by Pulse Oximetry 100 Orders (Tests/Meds): ORDERS Category Date Time Status CA venous doppler LE LT Stat Y 10/29/24 13:02 Completed Medical Decision Narrative: In summary patient is a 24-year-old female who presents to the emergency department for evaluation of left lower extremity pain and swelling. Patient is hemodynamically stable upon arrival, afebrile. Physical exam is remarkable for bilateral lower extremity pitting edema +2 however left is greater than right. There is no induration there is no erythema. Patient has no posterior calf tenderness. Patient has no pain with Homans maneuver.. Differential diagnosis includes lymphedema versus DVT. Initial workup will be conducted with venous duplex of the left lower extremity. Initial interventions were considered however patient is minimally symptomatic and hemodynamically stable thus deferred for now. Initial workup reviewed by me and her ultrasound DVT did not show any evidence of thrombus or cellulitis. Given this patient is appropriate for discharge with recommendations to wear compression stockings avoid prolonged sitting and close follow-up with her PCP for any persistent new or worsening signs or symptoms or return to the ER as needed. I was consulted by the [facility], and we discussed the complexity of the problems being addressed. I approve the treatment and management plan for this patient's care in the emergency department, thus performing a substantive portion of the medical decision making. Francisco Watkins MD Critical Care <OSCAR Wallace - Last Filed: 10/29/24 21:26> Critical Care Time Critical Care Time: No
--- NOTE | 2024-10-29 13:02 | CA_ITS ---
FINAL REPORT TECHNIQUE: Compression garza scale and Doppler evaluation CLINICAL HISTORY: LT LEG PAIN AND EDEMA AFTER CAR TRIP TO [place],PT IS 35 WEEKS PREG FINDINGS: Femoral and popliteal veins show normal compressibility and flow. Visualized portion of the calf veins are patent by Doppler exam. IMPRESSION: No evidence of left lower extremity deep venous thrombosis Reviewed, Interpreted and Dictated by Arsen Jones MD Transcribed by Radha Tello Authenticated and [facility]
[2024-10-29 13:49] VITALS: BP 114/71; PULSE 89; RESP 14; TEMP 36.6; O2SAT 99
== END 2024-10-29 13:50 | disposition home or self-care (01) ==
PROVIDERS: Emergency Provider Student in an Organized Health Care Education/Training Program; PCP Internal Medicine Addiction Medicine
DX: I89.0 Lymphedema, not elsewhere classified (principal)
CPT/HCPCS: 93971; 99283

== ENCOUNTER 2024-11-13 18:51 | Inpatient (IN) | payer BC, OTHER, SELFPAY ==
[2024-11-13 17:56] VITALS: BMI 35.1
--- OUTSIDE RECORDS SUMMARY | 2024-11-13 17:57 | XMS_ITS | Clinical Summary ---
Author Organization Healthcare Address [address] [place] [address] Care Team Providers Care Produce Service Team Member Name Role Phone Cam Rivas MD Primary Care Provider [phone] Allergies No known active allergies Medications acetaminophen (Tylenol) 325 MG tablet Take 2 tablets (650 mg) by mouth every 6 (six) hours if needed for pain or headaches. 100 tablet 08/10/2023 Active cyclobenzaprine (Flexeril) 5 MG tablet Take 1 tablet (5 mg) by mouth 3 (three) times a day if needed for muscle spasms. 30 tablet 08/10/2023 Active Social History Tobacco Use Types Packs/Day Years Used Date Smoking Tobacco: Never Comments No Sex and Gender Information Value Date Recorded Sex Assigned at Not on file Legal Sex Female 6:40 PM EDT Gender Identity Not on file Sexual Orientation Not on file Last Filed Vital Signs Vital Sign Reading Time Taken Comments Blood Pressure 125/74 08/10/2023 12:30 AM EST Pulse 108 08/10/2023 12:30 AM EST Temperature 37.1 C (98.7 F) 08/10/2023 12:30 AM EST Respiratory Rate 18 08/10/2023 12:3 0 AM EST Oxygen Saturation 100% 09/27/2022 8:50 AM EDT Inhaled Oxygen Concentration - - Weight 79.7 kg (175 lb 11.3 oz) 09/27/2022 8:50 AM EDT Height 157.5 cm (5' 2 ) 09/27/2022 8:50 AM EDT Body Mass Index 32.14 09/27/2022 8:50 AM EDT Plan of Treatment Health Maintenance Due Date Last Done Comments Dental Oral Exam 2002 Dental Prophylaxis 2002 Dental X-Ray: Bitewings 2002 Dental X-Ray: Full Mouth 2002 [facility]-Depression Screening 2002 [facility]-HIV Screening 2002 [facility]-Hepatitis C Screening 2002 [facility]-Infant/Child/Adol SDOH Screenings 2002 [facility]- SDOH Screenings 2020 [facility]-Adult SDOH Screenings 2020 [facility]-Pap Smear 2023 [id number] Vaccine ( season) 2024 04/13/2021, 03/05/2021 [facility]-DTaP,Tdap,and Td Vaccines (6 - Td or Tdap) 03/01/2024 03/01/2014, 01/27/2007, 01/07/2006, Additional history exists [facility]-Influenza Vaccine (Season Ended) 2025 [facility]-Zoster Vaccines (1 of 2) 2052 01/27/2007, 10/31/2005 [facility]-HIB Vaccines Completed 10/31/2005 [facility]-Pneumococcal Vaccine: Pediatrics (0 to 5 Years) and At-Risk Patients (6 to 49 Years) Aged Out 12/02/2005 No longer eligible based on patient's age to complete this topic [facility]-Hepatitis B Vaccines Completed 006, 12/02/2005, 10/31/2005, Additional history exists [facility]-IPV Vaccines Completed 01/27/2007, 06/2005, 12/02/2005, Additional history exists [facility]-Varicella Vaccines Completed 01/27/2007, 2005 HPV Vaccines Completed 01/13/2018, 03/01/2014 [facility]-Hepatitis A Vaccines Completed 07/29/2018, 12/2017 [facility]-Obesity Intervention Completed 08/10/2023, 09/08 [facility]-Rotavirus Vaccines Aged Out No lo nger eligible based on patient's age to complete this topic Insurance [facility] MEDICAID [facility] MEDICAID Care Teams Produce Service Team Member Relationship Specialty Start Date End Date Cam Rivas MD [address] [place] [address] PCP - General 10/20/20
--- OUTSIDE RECORDS SUMMARY | 2024-11-13 17:57 | XMS_ITS | Referral Summary ---
Author Organization [facility] [employer] Address [address] [place] [address] Care Team Providers Care Mail Truck Driver Name Role Phone Juan Sethi MD Primary Care Provider [phone] Allergies No known active allergies Medications No known medications Social History Tobacco Use Types Packs/Day Years Used Date Smoking Tobacco: Never Smokeless Tobacco: Never Tobacco Cessation:Counseling Given: Not Answered Alcohol Use Standard Drinks/Week Comments Not Currently 0 (1 standard drink = 0.6 oz pur e alcohol) Interpersonal Safety Answer Date Record ed Family or friends hurt you Not on file 06/26 Family or friends insult you Not on file Family or friends threaten you Not on file 0 06/26/2023 Family or friends scream or curse at you Not on file 06/26/2023 Housing Stability Answer Date Recorded Living situation today Not on file Living situation problems Not on file 2023 Food Insecurity Answer Date Recorded Food run out past 12 months Not on file 06/09 Food did not last past 12 months Not on file 06/26/2023 Employment Answer Date Recorded Help finding and keeping a job Not on file 0 06/26/2023 Family and Community Support Answer [place] e Recorded Help with Day to Day Activities Not on file 06/26/2023 Feeling Lonely or Isolated Not on file 06/26 Educational Attainment Answer Date Scott rded Speak language other than Slovenian at home Not on file 06/26/2023 Want help with school or training Not on file 06/26/2023 Depression Answer Date Recorded PHQ-2 Risk Not on file 06/26/2023 Disabilities Answer Date Recorded Difficulty concentrating Not on file 024 Difficulty doing errands alone Not on file 0 06/26/2023 Substance Use Answer Date Recorded Used prescription meds for non-medical reasons N ot on file 06/26/2023 Used illegal drugs past 12 months Not on file 06/26/2023 Comments Unknown Sex and Gender Information Value Date Recorded Sex Assigned at Not on file Legal Sex Female 5:19 PM CDT Gender Identity Not on file Sexual Orientation Not on file Last Filed Vital Signs Vital Sign Reading Time Taken Comments Blood Pressure 116/74 01/31/2023 2:02 AM EDT Pulse 76 01/31/2023 2:02 AM EDT Temperature 36.7 C (98 F) 01/31/2023 12:39 AM EDT Respiratory Rate 18 01/31/2023 2:02 AM EDT Oxygen Saturation 100% 01/31/2023 2:02 AM EDT Inhaled Oxygen Concentration - - Weight 74.4 kg (164 lb) 01/31/2023 12:16 AM EDT Height 157.5 cm (5' 2 ) 01/31/2023 12:16 AM EDT Body Mass Index 30 01/31/2023 12:16 AM EDT Plan of Treatment Not on file Insurance [facility] Care Teams Mail Truck Driver Relationship Specialty Start Date End Date Juan Sethi MD [address] [place] [address] PCP - General Family Medicine 01/31/23
--- OUTSIDE RECORDS SUMMARY | 2024-11-13 17:57 | XMS_ITS | Clinical Summary ---
Author Organization [employer] Address [address] [place] [address] Care Team Providers Care Christian Science Nurse Name Role Phone Juan Sethi MD Primary Care Provider [phone] Allergies No known active allergies Medications No [...] Date Scott rded Speak language other than Djiboutian at home Not on file 06/26/2023 Want [...] 01/31/2023 12:16 AM EDT Plan of Treatment Health Maintenance Due Date Last Done Comments Depression Screening (12+) 2014 HIV Screening 2017 Meningococcal B Vaccine (1 o f 2 - Standard) 2018 Hepatitis C Screening 2020 DTAP/TDAP/TD VACCINES (1 - Tdap) 2021 Lipid Panel 2022 Pap Smear 2023 Tobacco Cessation Counseling and Screening (12+) 02/01/2024 01/31/2023 COVID-19 VACCINE (1 - 2023-2 5 season) 2024 Influenza Vaccine (Season Ended) 2025 Pneumococcal Vaccine: 0-49 Years Aged Out No longer eligible based on patient's age to complete this topic Insurance [facility] Care Teams Christian Science Nurse Relationship Specialty Start Date End Date Juan Sethi MD [address] [place] [address] [place] [address] PCP - General Family Medicine 01/31/23
[2024-11-13 18:19] VITALS: BP 133/80; PULSE 91; RESP 16; TEMP 36.8; O2SAT 98; BMI 35.1
--- NOTE | 2024-11-13 19:34 | EXP.HP ---
History of Present Illness *Admission Date: 11/13/24 *Reason for visit:: Active labor. *History of present illness: She is a 24-year-old 2 para 1 at 37+ weeks gestational age. She began having contractions yesterday and today they got a lot worse so she came into labor and delivery. She was found to be silvia fairly strongly every 2 to 3 minutes and she had some minimal bloody show. Cervix was found to be 4 cm 80% effaced and station -2. As result of the active labor she is admitted for delivery. A Rh+ blood Rubella immune Group B streptococcus negative [facility] Disclaimer: The information contained in this section may have been updated after the patient was seen, as this information can be updated by other users. Medical History Iron deficiency anemia during , antepartum Elevated blood pressure affecting in first trimester, antepartum Short interval between pregnancies affecting , antepartum Surgical History Hx of tonsillectomy Family History Cancer Unknown Social History Smoking Status: Never smoker alcohol intake: never substance use type: denies use current occupational status: unemployed Travel in the last 8 weeks?: None household members: spouse and children marital status: number of children: 1 do you feel safe at home: Yes victim of physical abuse: No victim of emotional abuse: No victim of sexual abuse: No Have you lived/traveled outside US in past 30 days?: No Contact w/someone who lives/traveled outside US past 30 days?: No Exposure to someone with infectious disease in past 14 days?: No Do you have a fever (greater than 100.4 F or 38 C)?: No Have you tested positive for COVID-19?: No Exposed to someone with COVID-19 in past 14 days?: No Do you have a sore throat?: No Do you have a cough?: No Do you have any weakness?: No Are you experiencing any nausea/vomitting?: No Do you have any diarrhea?: No Are you experiencing any unusual bleeding?: No Do you have any muscle aches/pain?: No Do you have any abdominal pain?: No Are you experiencing loss of taste or smell?: No Other Medical History Have you received the Flu Vaccine for this season: No Have you received the Pneumonia Vaccine: No Review of Systems Review of Systems Review of systems:: pertinent systems reviewed and negative unless documented below Meds Home Medications and Allergies Home Medications ?Medication ?Instructions ?Recorded ?Confirmed ?Type vits no.126-ferrous fum 1 tab PO DAILY #30 tabs 04/28/24 11/13/24 Rx 28 mg iron-folic acid 800 mcg tablet (Classic ) ferrous sulfate 325 mg (65 mg 325 mg PO DAILY #30 tabs 10/15/24 11/13/24 Rx iron) tablet promethazine 12.5 mg tablet 12.5 mg PO Q6HP PRN nausea and 11/13/24 11/13/24 History vomiting New Prescriptions to Start Prescriptions: Allergies Allergy/AdvReac Type Severity Reaction Status Date / Time No Known Allergies Allergy Verified 11/05/24 10:25 Exam Data for Last 24 hours Vital signs and Labs for Last 24 Hours: Temp Pulse Resp BP Pulse Ox O2 Del Method 98.2 F 91 H 16 133/80 98 Room Air 11/13/24 18:19 11/13/24 18:19 11/13/24 18:19 11/13/24 18:19 11/13/24 18:19 11/13/24 18:19 I & O for Last 24 hours: Intake & Output 11/11/24 11/12/24 11/13/24 11/14/24 11:59 11:59 11:59 11:59 Weight 192 lb Constitutional Constitutional: no acute distress *Routine HEENT Exam Head: Present normocephalic Eye: Present EOMI and PERRL ENT: Present mucous membranes moist *Routine Neck Exam Neck: Present supple; Absent lymphadenopathy *Routine Respiratory Exam Respiratory: Present CTA bilaterally *Routine Cardiovascular Exam Cardiovascular: Present RRR *Routine Abdominal Exam Abdominal: Present soft and normoactive bowel sounds; Absent tenderness *Routine Rectal Exam Rectal:: deferred *Routine Genitalia Exam Genitalia:: deferred *Routine Extremities Exam Extremities: Absent cyanosis, clubbing or edema *Routine Skin Exam Skin: Present warm; Absent rash *Routine Neurological Exam Neurological: Present alert and oriented X3 Assessment and Plan *Assessment and plan (1) Iron deficiency anemia during , antepartum: Status: Acute Category: Medical Code(s): O99.019 - Anemia complicating , unspecified trimester; D50.9 - Iron deficiency anemia, unspecified (2) Short interval between pregnancies affecting , antepartum: Status: Acute Category: Medical Code(s): O09.899 - Supervision of other high risk pregnancies, unspecified trimester Plan 1. She is admitted for delivery. She has had a previous vaginal delivery and would expect a another vaginal delivery. 2. I have ruptured her membranes and there was clear fluid. She is 4 cm, 80% effaced and station -2. Fetus is cephalic. 3. She has iron deficiency anemia and will likely benefit from Venofer. Her ferritin is low as well.
[2024-11-13] MEDS: DEXTROSE 5%-LACTATED RINGERS 1,000 ML 125 ML IV (19:36)
[2024-11-13 19:43] LABS: Basophils % 0.2 % (0.1-2.0); Hematocrit 30.1 % (37.0-47.0); Hemoglobin 9.4 g/dL (12.2-16.2); Immature Granulocytes % 0.8 %; Lymphocytes # 2.3 K/mm3 (0.7-4.5); Lymphocytes % 17.3 % (10-50); Mean Corpuscular HGB Conc 31.2 g/dL (31.8-35.4); Mean Corpuscular Hemoglobin 22.7 pg (27.0-31.2); Mean Corpuscular Volume 72.5 fl (81-99); Mean Platelet Volume 10.3 fl (7.4-10.4); Monocytes # 0.8 K/mm3 (0.1-1.0); Monocytes % 5.8 % (1.7-9.3); Neutrophils # 10.1 K/mm3 (1.8-7.8); Neutrophils % 75.9 % (37.0-80.0); Nucleated Red Blood Cells # 0 10^3/uL; Nucleated Red Blood Cells % 0 %; Platelet Count 241 K/mm3 (142-424); Red Blood Count 4.15 M/mm3 (4.20-5.40); Red Cell Distribution Width 17.6 % (11.5-17.5); Red Cell Distribution Width-SD 45.6 fL; White Blood Count 13.3 K/mm3 (4.8-10.8)
[2024-11-13 19:47] LABS: Microscopic, Urine URINE MICROSCOPIC (MICROSCOPIC)
[2024-11-13 19:48] LABS: Appearance,Urine CLEAR (Clear); Bilirubin,Urine Negative (Negative); Blood, Urine TRACE-L (Negative); Color,Urine YELLOW (Yellow); Glucose,Urine (UA) Negative (Negative); Ketones,Urine 2+ (Negative); Leukocyte Esterase,Urine Negative (Negative); Nitrate,Urine Negative (Negative); Protein,Urine Negative (Negative); Urobilinogen,Urine 0.2 EU/dl (0.2)
[2024-11-13] MEDS: OXYTOCIN/RINGERS LACTATE 30 UNITS/500 ML BAG IV (19:53)
[2024-11-13] MEDS: LACTATED RINGERS 1000ML 1,000 ML 250 ML IV (19:53)
[2024-11-13 20:09] LABS: RBC,Urine Occasional #/hpf (0-3); WBC,Urine Occasional #/hpf (0-3)
[2024-11-13 20:18] LABS: Anion Gap 9.7 mEq/L (5-15); Blood Urea Nitrogen 6 mg/dl (7-17); Calcium 9.3 mg/dl (8.4-10.2); Carbon Dioxide 20 mmol/L (22.0-30.0); Chloride 106 mmol/L (98-107); Creatinine Clearance Estimated 243 mL/min (50-200); Estimated Glomerular Filt Rate 154 ml/min (>60); GFR (African American) 187 ML/MIN (>60); Glucose 69 mg/dl (74-100); Potassium 3.7 mmoL/L (3.5-5.1); Sodium 132 mmol/L (136-145)
--- NOTE | 2024-11-13 21:01 | EXP.ANES.CKL ---
[facility] Disclaimer: The information contained in this section may have been updated after the patient was seen, as this information can be updated by other users. Medical History Iron deficiency anemia during , antepartum Elevated blood pressure affecting in first trimester, antepartum Short interval between pregnancies affecting , antepartum Surgical History Hx of tonsillectomy Family History Unknown Cancer Social History Smoking Status: Never smoker alcohol intake: never substance use type: denies use current occupational status: unemployed Travel in the last 8 weeks?: None household members: spouse and children marital status: number of children: 1 do you feel safe at home: Yes victim of physical abuse: No victim of emotional abuse: No victim of sexual abuse: No Have you lived/traveled outside US in past 30 days?: No Contact w/someone who lives/traveled outside US past 30 days?: No Exposure to someone with infectious disease in past 14 days?: No Do you have a fever (greater than 100.4 F or 38 C)?: No Have you tested positive for COVID-19?: No Exposed to someone with COVID-19 in past 14 days?: No Do you have a sore throat?: No Do you have a cough?: No Do you have any weakness?: No Are you experiencing any nausea/vomitting?: No Do you have any diarrhea?: No Are you experiencing any unusual bleeding?: No Do you have any muscle aches/pain?: No Do you have any abdominal pain?: No Are you experiencing loss of taste or smell?: No [facility] Anesthesia Checklist Patient Identification Patient Identification: Arm Band and Verbal (Name & ) Structural Data Admitted From: Inpatient Planned Operative Procedure/s: labor epidural Consent for Planned Operative Procedure(s) Verified: Yes Verified Documents: Surgical Consent and History and Physical Additional verifications Anesthesia Reactions: No Airway Assessment Dentition: Good Dentition Neurological Assessment Level of Consciousness: Awake, Alert and Appropriate Hx Seizures: No Numbness or tingling in extremities: No Anesthesia Plan Anesthesia Risk discussed: Yes Anesthesia Plan: Verified ASA Class: I Anesthesia Type: Epidural
[2024-11-13] MEDS: diphenhydrAMINE 50MG/ML VIAL 12.5 MG IV (22:07)
[2024-11-13] MEDS: ALUMINUM/MAGNESIUM/SIMETHICONE 30ML UDC 30 ML PO (22:14)
--- NOTE | 2024-11-13 22:41 | EXP.LABOR.NO ---
Labor Note Subjective: Date: 11/13/24 Time: 22:41 regular contraction Objective: NST:: Reactive Contractions:: every 2-3 minutes Cervical Dilation:: 9-10 Effacement:: 100% Station: +3 Membranes: artificially ruptured Fetus: Monitoring?: Yes monitoring type:: External Assessment: Labor progressing?: Yes Cephalopelvic disproportion?: No Plan: Anesthesia for epidural?: Yes Continue to labor down?: No Plan for ?: No Continue to monitor?: Yes Start pushing?: Yes Comment:: She is only dilated station +3. We will plan to start pushing and deliver her.
[2024-11-13] MEDS: OXYTOCIN/RINGERS LACTATE 30 UNITS/500 ML BAG 40 UNITS IV ×2 (22:49→23:13)
--- NOTE | 2024-11-13 22:59 | EXP.DN ---
Delivery Note Delivery Date:: 11/13/24 Delivery Time:: 22:48 Anesthesia Type: Epidural Was labor medically induced?: No Induction method: none Gestational age (weeks): 37 delivered prior to 39 weeks?: Yes Justification for early elective delivery:: Active Labor Infant Gender: Male at 1 minute: 9 at 5 minutes: 9 LAC or MLE?: LAC Delivery Procedure:: She is a 24-year-old 2 para 2 who is 37 weeks gestational age. She came in in active labor. She was found to be's 4 cm dilated and actively silvia so elected to rupture her membranes. She progressed to full dilation under labor epidural and delivered spontaneously a liveborn male child at 10:48 PM in the evening of November 13, 2024. On deliver the head it was noted that there was a loose nuchal cord which was easily reduced. This was followed by the anterior shoulder and the rest the infant's body atraumatically. The baby was vigorous so we allowed the cord to continue to pulsate for oxygen 1 minute. The oropharynx and nasopharynx were bulb suctioned. The cord was then doubly clamped and cut and the was placed on the mother's abdomen for further care. The nurses assigned Apgars of 9 at 1 minute and 9 at 5 minutes. We then obtained cord blood. She received IV oxytocin using gentle traction on the cord and countertraction on the fundus I was able to easily deliver the placenta intact. It had a normal three-vessel cord. She had a small first-degree vaginal laceration that was repaired with interrupted 3-0 Vicryl Rapide suture. She has a Rh+ blood, she is well immune and was group B streptococcus negative. Her estimated blood loss was approximately 150 cc. Laceration:: vaginal Placental Delivery Description: Spontaneous
[2024-11-13] MEDS: LANOLIN CREAM 40GM TP (23:14)
[2024-11-13] MEDS: BENZOCAINE-MENTHOL SPRAY 56GM CAN TP (23:15)
[2024-11-14] MEDS: ACETAMINOPHEN 500MG TAB 1000 MG PO ×2 (00:44→20:48)
[2024-11-14 05:47] LABS: RPR W/RFX Titers Nonreactive (Nonreactive)
[2024-11-14 07:29] LABS: Hemoglobin 8.8 g/dL (12.2-16.2)
--- NOTE | 2024-11-14 11:05 | EXP.ACUTE.PN ---
Subjective *Date: 11/14/24 *Time: 11:05 Interval history: She continues to do very well this morning. She is eating and drinking and ambulating. She is breast-feeding. Her lochia is normal. Her hemoglobin is 8.8. She denies any symptoms. Medical Exam Vital signs and Labs for Last 24 Hours: Vital Signs Temp Pulse Resp BP Pulse Ox O2 Del Method 11/13/24 18:19 98.2 F 91 H 16 133/80 98 Room Air Intake and Output 11/13/24 11/14/24 11/14/24 19:59 03:59 11:59 Other: Weight 192 lb Patient Weight 11/14/24 11:59 Weight 192 lb Laboratory Results - last 24 hr 11/13/24 19:06: Urine Color Yellow, Urine Appearance Clear, Urine pH 6.0, Ur Specific [place] 1.010, Urine Protein Negative, Urine Glucose (UA) Negative, Urine Ketones 2+, Urine Blood Trace-l, Urine Nitrate Negative, Urine Bilirubin Negative, Urine Urobilinogen 0.2, Ur Leukocyte Esterase Negative, Urine RBC Occasional, Urine WBC Occasional, Ur Squamous Epith Cells 3-5 11/13/24 19:25: WBC 13.3 H, RBC 4.15 L, Hgb 9.4 L, Hct 30.1 L, MCV 72.5 L, MCH 22.7 L, MCHC 31.2 L, RDW 17.6 H, Plt Count 241, MPV 10.3, Neut % (Auto) 75.9, Lymph % (Auto) 17.3, [place] % (Auto) 5.8, Eos % (Auto) 0.0 L, Baso % (Auto) 0.2, Neut # (Auto) 10.1 H, Lymph # (Auto) 2.3, [place] # (Auto) 0.8, Eos # (Auto) 0.0, Baso # (Auto) 0.0, Sodium 132 L, Potassium 3.7, Chloride 106, Carbon Dioxide 20 L, Anion Gap 9.7, BUN 6 L, Creatinine 0.50 L, Estimated Creat Clear 243, Estimated GFR 154, Est GFR ( Amer) 187, Glucose 69 L, Calcium 9.3, RPR w/Rflx to Titer Nonreactive, Blood Type A Positive, Antibody Screen Negative 11/14/24 07:15: Hgb 8.8 L, Hct 29.0 L I & O for Labs for Last 24 Hours: Intake & Output 11/11/24 11/12/24 11/13/24 11/14/24 11:59 11:59 11:59 11:59 Weight 192 lb Head: Present normocephalic Neck: Present normal inspection Respiratory: Present normal respiratory effort; Absent accessory muscle use Assessment and Plan *Assessment and plan (1) Iron deficiency anemia during , antepartum: Status: Acute Category: Medical Code(s): O99.019 - Anemia complicating , unspecified trimester; D50.9 - Iron deficiency anemia, unspecified (2) Elevated blood pressure affecting in first trimester, antepartum: Status: Acute Category: Medical Code(s): O16.1 - Unspecified maternal hypertension, first trimester (3) Short interval between pregnancies affecting , antepartum: Status: Acute Category: Medical Code(s): O09.899 - Supervision of other high risk pregnancies, unspecified trimester (4) Normal delivery at term: Status: Acute Category: Medical Code(s): O80 - Encounter for full-term uncomplicated delivery Plan She is doing very well. We will plan to send her home tomorrow. We will plan an iron infusion as an outpatient.
[2024-11-14 20:42] VITALS: BP 114/75; PULSE 77; RESP 16; TEMP 36.8; O2SAT 99
[2024-11-15 05:00] VITALS: BP 117/56; PULSE 88; RESP 17; TEMP 36.7; O2SAT 99
[2024-11-15 08:49] VITALS: BP 119/80; PULSE 73; RESP 18; TEMP 36.5; O2SAT 100
--- NOTE | 2024-11-15 09:20 | P.DS_ITS ---
General Admission date:: 11/13/24 Discharge date: 11/15/24 HPI HPI HPI: PPD # 2 s/p Feeling well. Pain controlled. Breast feeding/pumping. Lochia is light. Voiding without difficulty and passing flatus. Tolerating regular diet. Denies fever/chills, chest pain and shortness of breath. No headaches, vision changes, lightheadedness/dizziness. No lower extremity swelling. Ambulating well ad lorena. Hospital Course Hospital Course Hospital Course: Ms Fanny Hardy is a 24-year-old at 37+ weeks gestational age admitted to [facility] L&D for active labor. Upon admission she was found to be silvia fairly strongly every 2 to 3 minutes and she had some minimal bloody show. Cervix was 4/80%/-2. GBS negative. She had a normal spontaneous vaginal delivery on 11/13/24 at 2248. She delivered a live male baby, Xiang, weighing 6 lb 3 oz. APGARs 9 (1 min), 9 (5 min). She did well . Pain controlled. Breast feeding. Light lochia. Voiding without difficulty and passing flatus. Tolerating regular diet. Denies fever/chills, chest pain and shortness of breath. No headaches, dizziness/lightheadedness or vision changes. Vital signs stable, afebrile. Heart regular rate and rhythm. Lungs clear to auscultation. Abdomen soft, nontender. Trace bilateral lower extremity swelling. No calf tenderness. Ambulating well ad lorena. Normal hospital course. She was discharged to home on PPD # 2 with instructions to follow-up in the office in 2 weeks or sooner if needed. Exam Data for Last 24 hours Vital signs and Labs for Last 24 Hours: Temp Pulse Resp BP Pulse Ox O2 Del Method 97.7 F 73 18 119/80 100 Room Air 11/15/24 08:49 11/15/24 08:49 11/15/24 08:49 11/15/24 08:49 11/15/24 08:49 11/15/24 08:49 I & O for Last 24 hours: Intake & Output 11/12/24 11/13/24 11/14/24 11/15/24 23:59 23:59 23:59 23:59 Weight 192 lb Constitutional Constitutional: no acute distress and cooperative *Routine HEENT Exam Head: Present normocephalic and atraumatic Eye: Absent conjunctivae pink ENT: Present mucous membranes moist *Routine Neck Exam Neck: Present full ROM *Routine Respiratory Exam Respiratory: Present CTA bilaterally and normal respiratory effort *Routine Cardiovascular Exam Cardiovascular: Present RRR *Routine Abdominal Exam Abdominal: Present soft; Absent tenderness or distended *Routine Rectal Exam Patient deferred: visual exam *Routine Exam Patient deferred: external exam *Routine Extremities Exam Extremities: Present edema (trace bilateral lower extremity edema) and full ROM; Absent calf tenderness *Routine Neurological Exam Neurological: Present alert, moving all extremities and normal speech Routine Psychiatric Exam Psychiatric: Present normal affect DS: Diagnosis Discharge Diagnosis (1) Normal delivery at term: Status: Acute Code(s): O80 - Encounter for full-term uncomplicated delivery (2) Short interval between pregnancies affecting , antepartum: Status: Acute Code(s): O09.899 - Supervision of other high risk pregnancies, unspecified trimester (3) Iron deficiency anemia during , antepartum: Status: Acute Code(s): O99.019 - Anemia complicating , unspecified trimester; D50.9 - Iron deficiency anemia, unspecified (4) Acute blood loss anemia: Status: Acute Code(s): D62 - Acute posthemorrhagic anemia Meds Home Medications and Allergies Home Medications ?Medication ?Instructions ?Recorded ?Confirmed ?Type vits no.126-ferrous fum 1 tab PO DAILY #30 ta bs 04/28/24 11/13/24 Rx 28 mg iron-folic acid 800 mcg tablet (Classic ) promethazine 12.5 mg tablet 12.5 mg PO Q6HP PRN nausea and 11/13/24 11/13/24 History vomiting ferrous sulfate 325 mg (65 mg 325 mg PO DAILY #30 tabs 11/15/24 Rx iron) tablet New Prescriptions to Start Prescriptions: ferrous sulfate Tahira Gómez Allergies Allergy/AdvReac Type Severity Reaction Status Date / Time No Known Allergies Allergy Verified 11/05/24 10:25 Discharge Plan Disposition Patient Disposition: Home, Self-Care Condition: Good Discharge Order Discharge Orders: Discharge Order (Routine); Ordered 11/15/24 Ordered By: Tahira Gómez Follow up Plan Follow up with: Nydia Kimble DO [Staff Physician, RNP] - 2 weeks Prescriptions/Medication Reconciliation: Continued Classic 28 mg iron- 800 mcg tablet 1 tab PO DAILY Qty: 30 3RF promethazine 12.5 mg tablet 12.5 mg PO Q6HP PRN (Reason: nausea and vomiting) ferrous sulfate 325 mg (65 mg iron) tablet 325 mg PO DAILY Qty: 30 11RF Problem Reconciliation Problems Reviewed?: Yes Patient Discharge Instructions ACTIVITY: Limited activity DIET: continue same diet and regular diet Additional Instructions: Congratulations!! Discharge: 1. Take 800 mg Ibuprofen every 8 hours as needed for pain. You can also take 500-1000 mg of Tylenol in between doses, every 6-8 hours. 2. Nothing in the vagina for 6 weeks - no intercourse, douching or tampons. No tub baths/hot tubs or swimming pools 3. Reasons to return to L&D or call On-Call doctor - fever (greater than 100.4) - heavy vaginal bleeding (soaking through 1 pad in less than 2 hours) - vaginal discharge (malodorous and/or purulent) - severe headaches not resolved by medication or rest and leg tenderness/edema 4. depression/blues - Normal to feel anxious/overwhelmed for first 2 weeks - Talk to your doctor if: severe anxiety, trouble bonding with baby, withdrawing from other family members, thoughts of harming yourself or others Tahira Gómez DO [facility] [phone] Print Language: Mauritian Providers Primary Care Provider: Juan Sethi Admanna Provider: Robson Lee Attending Provider: Robson Lee
== END 2024-11-15 16:45 | disposition home or self-care (01) | DRG 806 ==
LOC: OBOUT 18:52 → OB 18:52
PROVIDERS: Admitting Provider Nurse Practitioner Obstetrics & Gynecology; PCP Internal Medicine Addiction Medicine; Visit Provider Nurse Practitioner Obstetrics & Gynecology
DX: O99.02 Anemia complicating childbirth (principal); D62 Acute posthemorrhagic anemia; Z37.0 Single live birth; O69.81X0 Labor and delivery complicated by cord around neck, without compression, not applicable or unspecified; O70.0 First degree perineal laceration during delivery; D50.9 Iron deficiency anemia, unspecified; Z3A.37 37 weeks gestation of pregnancy; Z56.0 Unemployment, unspecified; Z79.899 Other long term (current) drug therapy
CPT/HCPCS: 36415; 59025; 80048; 81001; 85014; 85018; 85025; 86592; 86850; 94761; J1200; J2003; J2795; J3010; J7120; J7121